=== PATIENT | female | born 1935 | race Two or more races ===

== ENCOUNTER 2019-08-28 18:36 | Inpatient (IN) | payer MEDICARE, OTHER ==
[~2019-08-28] VITALS: Ht 177.8 cm; Wt 94.6 kg
[2019-08-28] MEDS ORDERED: ZOLPIDEM 5 MG TABLET. PO PRN (19:30)
[2019-08-28] MEDS ORDERED: ACETAMINOPHEN 500 MG TABLET PO PRN (19:30)
[2019-08-28 20:04] LABS: ALBUMIN 2.8 g/dL (3.4-5.0); ALBUMIN/GLOBULIN RATIO 0.8 (1.0-1.7); BASO # 0.1 x10^3/uL (0.0-0.2); BASO % 1 % (0-3); CALCIUM 8.3 mg/dL (8.5-10.1); CREATININE 1.2 mg/dL (0.6-1.0); EOS # 0.1 x10^3/uL (0.0-0.7); EOS % 1 % (0-3); GFR 42.9; HEMATOCRIT 37.7 % (36.0-47.0); HEMOGLOBIN 12.1 g/dL (12.0-15.5); LYMPH # 1.6 x10^3/uL (1.0-4.8); LYMPH % 17 % (24-48); MEAN CORPUSCULAR HEMOGLOBIN 27 pg (25-35); MEAN CORPUSCULAR HGB CONC 32 g/dL (31-37); MEAN CORPUSCULAR VOLUME 85 fL (79-100); MONO # 0.8 x10^3/uL (0.0-1.1); MONO % 9 % (0-9); NEUT # 6.8 x10^3uL (1.8-7.7); NEUT % 72 % (31-73); PLATELET COUNT 250 x10^3/uL (140-400); POTASSIUM 4.1 mmol/L (3.5-5.1); RED BLOOD COUNT 4.42 x10^6/uL (3.50-5.40); RED CELL DISTRIBUTION WIDTH 15.7 % (11.5-14.5); TOTAL BILIRUBIN 0.7 mg/dL (0.2-1.0); TOTAL PROTEIN 6.1 g/dL (6.4-8.2); WHITE BLOOD COUNT 9.4 x10^3/uL (4.0-11.0)
[2019-08-28 20:47] VITALS: BP 131/77
[2019-08-28] MEDS: RIVAROXABAN 15 MG TABLET. PO SCH (23:50)
[2019-08-28 23:59] VITALS: BP 134/90
[2019-08-29 05:19] VITALS: BP 125/87
[2019-08-29 05:42] LABS: BILIRUBIN,URINE NEG (NEG); CLARITY,URINE CLEAR; COLOR,URINE YELLOW; GLUCOSE,URINE NEG (NEG)
[2019-08-29 05:43] LABS: BACTERIA,URINE FEW /HPF (0-FEW); NITRITE,URINE NEG (NEG); RBC,URINE 0 /HPF (0-2); SQUAMOUS EPITHELIAL CELL,UR OCC /LPF
[2019-08-29 08:54] LABS: CALCIUM 8.2 mg/dL (8.5-10.1); CREATININE 1.1 mg/dL (0.6-1.0); GFR 47.4
[2019-08-29] MEDS: RIVAROXABAN 15 MG TABLET. PO SCH ×2 (08:54→17:00)
[2019-08-29] MEDS ORDERED: PANTOPRAZOLE 40 MG TABLET. PO SCH (09:10)
[2019-08-29] MEDS ORDERED: MORPHINE SULFATE 2 MG/ML DISP.SYRIN. IV PRN (09:15)
[2019-08-29] MEDS ORDERED: FUROSEMIDE 20 MG/2 ML VIAL IVP SCH (09:15)
[2019-08-29] MEDS ORDERED: NITROGLYCERIN SUBLINGUAL 0.4 MG BOTTLE OF 25. SL PRN (09:15)
[2019-08-29 09:22] LABS: BASO # 0.1 x10^3/uL (0.0-0.2); BASO % 2 % (0-3); EOS # 0.4 x10^3/uL (0.0-0.7); EOS % 4 % (0-3); HEMATOCRIT 35.4 % (36.0-47.0); HEMOGLOBIN 11.5 g/dL (12.0-15.5); LYMPH # 1.9 x10^3/uL (1.0-4.8); LYMPH % 21 % (24-48); MEAN CORPUSCULAR HEMOGLOBIN 28 pg (25-35); MEAN CORPUSCULAR HGB CONC 33 g/dL (31-37); MEAN CORPUSCULAR VOLUME 85 fL (79-100); MONO # 0.8 x10^3/uL (0.0-1.1); MONO % 9 % (0-9); NEUT # 5.9 x10^3uL (1.8-7.7); NEUT % 64 % (31-73); PLATELET COUNT 223 x10^3/uL (140-400); RED BLOOD COUNT 4.15 x10^6/uL (3.50-5.40); RED CELL DISTRIBUTION WIDTH 15.6 % (11.5-14.5); WHITE BLOOD COUNT 9.2 x10^3/uL (4.0-11.0)
--- NOTE | 2019-08-29 09:28 | NUR ---
NURSING NOTE CONSULT CARDIOLOGY CONSULT CALLED [phone] TO MUSA GUTIERREZ. PT HAD CHEST PAIN OFF AND ON PAST WEEK RADIATING TO LEFT ARM. ELEVATED AMARJIT. DEREK VARGAS.
[2019-08-29] MEDS ORDERED: IOHEXOL 350 MG/ML 100 ML VIAL. IV ONE (09:30)
[2019-08-29] MEDS ORDERED: CONTRAST GIVEN MC PRN (09:30)
--- NOTE | 2019-08-29 09:39 | RAD ---
EXAM: CHEST PA LATERAL INDICATION: Shortness of breath. TECHNIQUE: PA and lateral views COMPARISON: None FINDINGS: Heart is enlarged. Vessels show aortic calcification and mild tortuosity. There is no hilar or mediastinal mass. Lungs show mild diffuse interstitial opacities with curly B lines at the right lung base. Small left greater than right bilateral pleural effusions are present There are no significant osseous abnormalities. IMPRESSION: Findings suggesting CHF exacerbation. Electronically signed by: Viri Collins MD (08/29/2019 9:35 AM) [facility]
--- NOTE | 2019-08-29 09:58 | NUR ---
New iv placed in LEFT AC , [address] scan.
--- NOTE | 2019-08-29 10:00 | RAD ---
CT Head without contrast 08/29/2019 8:38 AM Indication: Dizziness Comparison: None Findings: No intracranial hemorrhage is seen. No evidence of acute territorial infarct is seen. Note that CT is limited in sensitivity for acute ischemia. Age-related atrophic changes are noted. There is mild patchy periventricular and deep white matter hypoattenuation which is nonspecific, but most commonly relates to chronic small vessel disease. No abnormal extra axial fluid collection is identified. No mass effect or midline shift is seen. No acute osseous abnormalities are seen. Impression: 1. No acute intracranial process identified 2. Age-related atrophy, and evidence of mild chronic small vessel disease as described CT DOSING PQRS STATEMENT: One or more of the following individualized dose reduction techniques were utilized for this examination: 1. Automated exposure control 2. Adjustment of the mA and/or kV according to patient size 3. Use of iterative reconstruction technique Electronically signed by: Isidro Dickinson MD (08/29/2019 9:57 AM) [id number]
--- NOTE | 2019-08-29 10:12 | RAD ---
EXAM: CT Abdomen and Pelvis without IV contrast INDICATION: Abdominal pain TECHNIQUE: Multi-detector row CT images were acquired from the lung bases through the abdomen and pelvis without the use of IV contrast. Sagittal and coronal images were acquired from the transaxial data. All CT scans performed at this facility utilize dose optimization techniques as appropriate to the exam, including the following: Automated exposure control and adjustment of the mA and/or KV according to patient size (this includes techniques or standardized protocols for targeted exams where dose is indication/reason for exam). ORAL CONTRAST: None DLP 683.5 mGycm COMPARISON: Chest x-ray same day FINDINGS: The absence of IV contrast limits evaluation of soft tissue pathology. LOWER CHEST: Cardiomegaly and small bilateral pleural effusions. LIVER: Unremarkable BILIARY SYSTEM: Gallbladder is contracted around a moderate size gallstone. Bile ducts are not dilated. PANCREAS: Unremarkable SPLEEN: Unremarkable ADRENALS: Mild periureteral adrenal soft tissue stranding. No hemorrhage or mass lesion. KIDNEYS & URETERS: Mild bilateral perirenal soft tissue stranding, likely kidney Andrew. BLADDER: Collapsed. Otherwise unremarkable REPRODUCTIVE ORGANS: Hysterectomy. Ovaries not well seen and may be surgically absent as well. GASTROINTESTINAL: Scattered colonic diverticuli. No findings of bowel obstruction, perforation or acute inflammation. The appendix is normal. MESENTERY/PERITONEUM/RETROPERITONEUM: Minimal mesenteric edema. VASCULAR: Added arterial calcifications. No aneurysm. LYMPH NODES: No adenopathy OSSEOUS & SOFT TISSUES: Ventral abdominal wall soft tissue stranding, presence of the setting of more generalized mild body wall edema.. IMPRESSION: 1. Cholelithiasis. Correlate clinically for evidence of acute cholecystitis and consider ultrasound if clinically warranted. 2. Otherwise no acute findings in the abdomen or pelvis with findings suggesting underlying CHF. Electronically signed by: Viri Collins MD (08/29/2019 10:09 AM) [facility]
--- NOTE | 2019-08-29 10:24 | NUR ---
NURSING NOTE PT VOMITING THIS AM, ZOFRAN IV ORDERED PER DR YOUNGBLOOD. WILL CONTINUE TO MONITOR. DEREK VARGAS.
[2019-08-29 10:52] VITALS: BP 120/81
--- NOTE | 2019-08-29 10:58 | EKG ---
[address] [address] Test Date: 2019-08-29 Test Time: 10:45:32 Pat Name: ARIANA LIMA Department: Room: 125 A Gender: F [facility] Unit Supervisor: JAMES : [id number] Requested By: MARILU DIEZ Order Number: [id number] Reading MD: Measurements Intervals [place] Rate: 101 P: 0 SD: 148 QRS: 14 QRSD: 106 T: 150 QT: 382 QTc: 496 Interpretive Statements SINUS TACHYCARDIA ST & T ABNORMALITY, CONSIDER HIGH LATERAL ISCHEMIA OR LEFT VENTRICULAR STRAIN ABNORMAL ECG RI6.02 No previous ECG available for comparison
[2019-08-29] MEDS ORDERED: SUCRALFATE 1 GM TABLET. PO SCH (11:30)
--- NOTE | 2019-08-29 11:45 | PN ---
DATE: SUBJECTIVE: This is a very pleasant 84-year-old female, who does not come to the doctor very often came in with multiplicity of medical problems including lightheadedness, dizziness, some chest discomfort, some arm pain, at times off and on and possibly with exertion and also markedly swollen to her legs. The patient notes that these have been going on here for the last week or so, she has been feeling good up until that time, her legs began to swell up and became rock hard as well as some difficulty in breathing as well as palpitations in her chest as well and feeling lightheaded and possibly some severe headaches. The patient came in the office. She was admitted. She was found to be in atrial fibrillation with rapid ventricular response and she was admitted to the hospital for multiplicity of medical problems, at least of which is the atrial fibrillation and the chest pain, shortness of breath. The change in mental status, possible abdominal pain, massive swelling to her legs. MARILU DIEZ MD DR: LAQUITA/natali JOB#: [id number] / [id number]
--- NOTE | 2019-08-29 11:58 | RAD ---
EXAM: CT Pulmonary Angiogram INDICATION: Chest pain and left arm pain. TECHNIQUE: Multi-detector row images were acquired from the thoracic inlet through the upper abdomen with the use of IV contrast. Sagittal and coronal images were acquired from the transaxial data. MIP images of the pulmonary arteries were obtained. All CT scans performed at this facility utilize dose optimization techniques as appropriate to the exam, including the following: Automated exposure control and adjustment of the mA and/or KV according to patient size (this includes techniques or standardized protocols for targeted exams where dose is indication/reason for exam). IV CONTRAST: Administered DLP 447.6 mGycm COMPARISON: Chest x-ray performed the same day FINDINGS: There is respiratory motion artifact that degrades detail and limits evaluation of the segmental and subsegmental pulmonary arterial branches. PULMONARY ARTERIES: No pulmonary emboli are identified. CARDIOVASCULAR: Borderline cardiac enlargement. Dense aortic valvular calcifications. Mitral annulus calcifications and coronary artery calcifications are also evident. Aorta is normal caliber. MEDIASTINUM & MAGI: No adenopathy or masses. LUNGS: Mild hypoventilatory changes and bibasilar atelectasis, left greater than right. Interlobular septal thickening.. PLEURAL SPACE: Small left greater than right bilateral pleural effusions. No pneumothorax. OSSEOUS & SOFT TISSUE: Unremarkable ABDOMEN: The visualized portions of the upper abdomen are unremarkable. IMPRESSION: Findings suggesting CHF with cardiomegaly and bilateral pleural effusions as well as interlobular septal thickening. No evidence of pulmonary emboli with smaller pulmonary arterial branch vessels less well evaluated due to respiratory motion artifact. EXAM: Right lower extremity venous Doppler. HISTORY: Positive d-dimer right leg swelling. COMPARISON: None. FINDINGS: Grayscale and Doppler analysis of the the right lower extremity deep venous system was performed with graded compression and augmentation. The common femoral, greater saphenous, superficial femoral, popliteal and calf veins were assessed. There is no evidence of deep venous thrombosis. IMPRESSION: 1. No evidence of deep venous thrombosis in the right lower extremity. Electronically signed by: Viri Collins MD (08/29/2019 11:55 AM) [facility]
--- NOTE | 2019-08-29 12:02 | PN ---
DATE: SUBJECTIVE: An 84-year-old female in her usual good state of health last week or so. She usually does not come in to the doctor who was admitted for years, began to have swelling in her legs as well as some chest discomfort and left arm pain off and on, but not continually. The patient denied any nausea, vomiting or diaphoresis with it; however, the patient's EKG in the office did show new onset of atrial fibrillation and as a result of this, the patient was admitted to the hospital for multiplicity of medical problems. She was also having some neurological changes, possibly difficulty with her speech according to her son. The patient was admitted for multiplicity of medical problems as noted and will be discussed later on. PAST MEDICAL HISTORY: Hypertension, hysterectomy, incontinence, fractures of the left foot and history of smoking, quit smoking in the past; however, it has been exposed to smoking. FAMILY HISTORY: Not known. ALLERGIES: There are no known allergies. HOME MEDICATIONS: The patient did not have any home medications to speak outside of some Tylenol. SOCIAL HISTORY: In any case, the patient's social history as noted above. REVIEW OF SYSTEMS: As noted, she has some mild headache, some problems with her speech at times. The patient denies any visual changes, blurred vision, double vision. Does have chest discomfort off and on, sometimes achiness in her left arm and some shortness of breath. Denies abdominal pain. Denies any nausea and vomiting, may have blood, but she thinks she has got hemorrhoids that needs to be evaluated further. Extremities as noted marked swelling and tenderness there. OBJECTIVE: GENERAL: This is a very pleasant white female looking stated age, somewhat pale appearing. VITAL SIGNS: Blood pressure 130/77, respiratory rate 20, pulse 84 and afebrile, oxygen sat 97%. The patient's weight is approximately 94 kilograms. HEENT: The patient's head was atraumatic, normocephalic. Eyes: PERRLA without jaundice. Poor dentition. NECK: Supple, without JVD, carotids or thyromegaly. LUNGS: Diminished, some mild crackles in the bases. CARDIOVASCULAR: Irregularly irregular with about a 3-4/6 systolic ejection murmur. ABDOMEN: Soft, nontender, protuberant. No rebound or guarding. Positive bowel sounds. EXTREMITIES: No clubbing, cyanosis, +4 pitting edema. Pulses noted distally decreased. NEUROLOGIC: The patient is alert and oriented x 3. Speech fluent, spontaneous, appropriate. Cranial nerves 2-12 grossly intact. LABORATORY DATA: White count 9, hemoglobin 12 and hematocrit 37. Sodium and potassium 140 and 4.4. BUN and creatinine 21 and 1.1. The patient otherwise troponin was elevated at 0.11 and also 0.96. BNP is pending. The patient's urine showed 5-10 whites, marked concentration of urine. Her D-dimer was elevated at 2.06. ASSESSMENT AND PLAN: The patient will be admitted for further evaluation and treatment thereof for what appears to be angina, new onset of atrial fibrillation, systolic heart murmur, possible congestive heart failure, possible GI bleed, possible TIAs or strokes, positive D-dimers, elevated troponin levels and severe protein malnutrition. The patient had continued to be monitored carefully, Cardiology consultation, CT scan of the head, chest CTA and abdomen, fecal Hemoccults, numerous other blood tests pending and make further evaluation on her as indicated. MARILU DIEZ MD DR: LAQUITA/natali JOB#: [id number] / [id number]
[2019-08-29 13:42] LABS: THYROID STIM HORMONE (TSH) 2.604 uIU/mL (0.358-3.740)
--- NOTE | 2019-08-29 14:14 | CARD ---
MR#: [id number] Date of Study: 08/29/2019 Ordering Physician: MARILU DIEZ, Referring Physician: MARILU DIEZ, Tech: Naomi Franklin APPROVED REPORT EXAM: Two-dimensional and M-mode echocardiogram with Doppler and color Doppler. Other Information Quality : AverageHR: 82bpm INDICATION Atrial Fibrillation 2D DIMENSIONS Left Atrium(2D)4.4 (1.6-4.0cm)IVSd1.2 (0.7-1.1cm) Aortic Root(2D)2.7 (2.0-3.7cm)LVDd5.9 (3.9-5.9cm) LVOT Diameter1.9 (1.8-2.4cm)PWd1.0 (0.7-1.1cm) LVDs4.8 (2.5-4.0cm)FS (%) 18.8 % SV67.0 mlLVEF(%)38.2 (>50%) Aortic Valve AoV Peak Alirio.530.4cm/sAoV IOZ828.2cm AO Peak GR.112.5mmHgLVOT Peak Alirio.65.5cm/s LVOT VTI 18.45cmAO Mean GR.77mmHg NEETU (VMAX)0.99ij0RHN (VTI)0.37cm2 Mitral Valve MV E Peak Gr.190mmHgMV E Mean Gr.5mmHg Pulmonary Valve PV Peak Qowxrffl502.6cm/sPV Peak Grad.7mmHg Tricuspid Valve TR P. Tzfffcim979wh/sRAP [id number] TR Peak Gr.48dfLoYIOF32yyOd LEFT VENTRICLE The Left Ventricle is mildly dilated. There is mild concentric left ventricular hypertrophy. The syst olic function is severely impaired. The Ejection Fraction is 35%. There is severe global hypokinesis of the left ventricle. Transmitral Doppler flow pattern is Grade II-pseudonormal filling dynamics. RIGHT VENTRICLE The right ventricle is normal size. There is normal right ventricular wall thickness. The right ventr icular systolic function is normal. ATRIA The left atrium is moderately dilated. The right atrium is borderline dilated. The interatrial septum is intact with no evidence for an atrial septal defect or patent foramen ovale as noted on 2-D or Do ppler imaging. AORTIC VALVE The aortic valve is calcified and displays decreased opening. Doppler and Color Flow revealed trace a ortic regurgitation. Calculated aortic valve area is .4 cm2 with maximum pressure gradient of 112 mmH g and mean pressure gradient of 77 mmHg. Doppler and color-flow analysis revealed severe aortic steno sis. MITRAL VALVE The mitral valve is moderately thickened. There is no evidence of mitral valve prolapse. Mitral valve mean gradient of 4.75 mmHg. There is mild mitral valve stenosis. Doppler and Color-flow revealed mod erate to severe mitral regurgitation. TRICUSPID VALVE The tricuspid valve is normal in structure and function. Doppler and Color Flow revealed mild to mode rate tricuspid regurgitation with an estimated PAP of 81 mmHg. There is moderate-severe pulmonary hyp ertension. There is no tricuspid valve stenosis. PULMONIC VALVE The pulmonic valve is not well visualized. Doppler and Color Flow revealed no pulmonic valvular regur gitation. There is no pulmonic valvular stenosis. GREAT VESSELS The aortic root is normal in size. The IVC is dilated and collapses <50% with inspiration. PERICARDIAL EFFUSION There is no evidence of significant pericardial effusion. Critical Notification Physician Notified Critical Value: Yes <Conclusion> The systolic function is severely impaired. The Ejection Fraction is 35%. There is severe global hypokinesis of the left ventricle. Calculated aortic valve area is .4 cm2 with maximum pressure gradient of 112 mmHg and mean pressure g radient of 77 mmHg. Doppler and color-flow analysis revealed severe aortic stenosis. Mitral valve mean gradient of 4.75 mmHg. There is mild mitral valve stenosis. Doppler and Color-flow revealed moderate to severe mitral regurgitation. Doppler and Color Flow revealed mild to moderate tricuspid regurgitation with an estimated PAP of 81 mmHg. There is moderate-severe pulmonary hypertension. Signed by : Cornelius Sung, Electronically Approved : 08/29/2019 14:13:49
[2019-08-29 15:01] VITALS: BP 145/95
--- NOTE | 2019-08-29 17:02 | NUR ---
NURSING NOTE PT GOING TO [facility]. DEREK VARGAS.
--- NOTE | 2019-08-29 18:00 | NUR ---
NURSING NOTE DISCHARGE PT TRANSFERRED TO [facility] VIA EMS AT 1800 ACCOMPANIED BY EMS PERSONNEL. REPORT CALLED TO ROSIE. WRITTEN AND VERBAL DISCHARGE INSTRUCTIONS GIVEN TO PT AND FAMILY. NO COMPLICATIONS. DEREK VARGAS.
== END 2019-08-29 18:02 | disposition short-term general hospital (02) | DRG 291 ==
LOC: 1 SOUTH 18:36
PROVIDERS: ADMIT Family Medicine; ATTEND Family Medicine
DX: I11.0 Hypertensive heart disease with heart failure (principal); E43 Unspecified severe protein-calorie malnutrition; I50.21 Acute systolic (congestive) heart failure; G45.9 Transient cerebral ischemic attack, unspecified; K92.2 Gastrointestinal hemorrhage, unspecified; I20.9 Angina pectoris, unspecified; I48.91 Unspecified atrial fibrillation; Z68.29 Body mass index [BMI] 29.0-29.9, adult; Z79.01 Long term (current) use of anticoagulants; Z90.710 Acquired absence of both cervix and uterus; Z87.891 Personal history of nicotine dependence
CPT/HCPCS: 36415; 70450; 71046; 71275; 74176; 80048; 80053; 80061; 81001; 82306; 82550; 83880; 84439; 84443; 84481; 84484; 85025; 85379; 87086; 87186; 93005; 93306; 93970; Q9967